=== PATIENT | male | born 1940 | race Caucasian/White ===

== ENCOUNTER → 2016-03-23 | Day surgery (SDC) | payer MEDICARE ==
[~2016-03-23] MED LIST: AMLO2.5T PO; ASPI81CH CHEW; ASPI81TA82 PO; BACT2OIN TOP; BUPIVACAINE/EPINEPHRINE 0.25% PF 10 ML VIAL ONE; COENPOW21; COQ130CA4 PO; CRES20TA PO; DICL75 PO; DIOV80TA4 PO; FISH120014 PO; HYDR-3533 PO; LACTATED RINGER'S 1000 ML INJ 1,000 ML ONE; LIDOCAINE 1%/EPINEPHrine 1:100,000 SOLN 20 ML VIAL ONE; META28.3 PO; METO25CR PO; METO25TA6 PO; MIDAZOLAM HCL 2 MG/2 ML VIAL ONE; MULT-135 PO; MULT-65 PO; NEXI40CA PO; NIAC500T18; NIAC500T5 PO; OMEG1000; PROPOFOL 200 MG/20 ML AMP IV ONE; RANI150 PO; ROSU20 PO; VITATAB25 PO; ZOFR8TAB PO; ceFAZolin INJ 1,000 MG VIAL ONE
--- NOTE | 2016-03-23 16:04 | TN ---
cc: SHAQUILLE MAK DATE OF SURGERY: 03/23/2016. PREOPERATIVE DIAGNOSIS: Right wrist first dorsal compartment tenosynovitis (de Quervain's tenosynovitis). POSTOPERATIVE DIAGNOSIS: Right wrist first dorsal compartment tenosynovitis (de Quervain's tenosynovitis). OPERATIVE PROCEDURE PERFORMED: First dorsal compartment release. SURGEON Shaquille Mak MD. ANESTHESIA: TIVA. ESTIMATED BLOOD LOSS: Minimal. INDICATIONS FOR THE PROCEDURE: This is a 75-year-old male with progressive first dorsal compartment symptoms. The patient has tenosynovitis and despite conservative care, continues to be painful. He presents for surgical treatment. DESCRIPTION OF THE PROCEDURE IN DETAIL: The patient was brought to the operating room, anesthetized in the supine position. The right arm was scrubbed alcohol followed by Hibiclens and draped sterilely. Antibiotics were given within a one hour time window and a time-out was done. After exsanguination, the tourniquet was inflated to 250 mmHg. Local anesthesia was utilized. A longitudinal incision was made in line with the first dorsal compartment. The compartment was opened longitudinally. Multiple slips of the tendon were identified. A portion of this was excised. The tendons had excellent gliding through this region. The wound was irrigated copiously. It was anesthetized and closed with interrupted 3-0 Vicryl followed by running 4-0 Vicryl and Steri-Strips and Benzoin. Sponge count and needle counts were all correct. The patient tolerated the procedure well and was taken to recovery in satisfactory condition.7 Shaquille Mak MD [facility] [place] /3:46 PM /3:58 PM
== END | disposition home or self-care (01) ==
LOC: ESDC 12:56
PROVIDERS: ATTEND Orthopaedic Surgery Orthopaedic Surgery of the Spine
DX: M65.4 Radial styloid tenosynovitis [de Quervain] (principal)
CPT/HCPCS: 01810; 25000; J0690; J2250; J3010; J7120

== ENCOUNTER 2016-05-13 23:47 | Emergency (ER) | payer MEDICARE ==
[~2016-05-13] VITALS: Ht 172.7 cm; Wt 81.0 kg
[~2016-05-13 23:47] MED LIST changes: -ASPI81CH CHEW; -BUPIVACAINE/EPINEPHRINE 0.25% PF 10 ML VIAL ONE; -COENPOW21; -LACTATED RINGER'S 1000 ML INJ 1,000 ML ONE; -LIDOCAINE 1%/EPINEPHrine 1:100,000 SOLN 20 ML VIAL ONE; -METO25TA6 PO; -MIDAZOLAM HCL 2 MG/2 ML VIAL ONE; -MULT-135 PO; -NIAC500T18; -OMEG1000; -PROPOFOL 200 MG/20 ML AMP IV ONE; -ROSU20 PO; -ZOFR8TAB PO; -ceFAZolin INJ 1,000 MG VIAL ONE
[2016-05-13 23:55] VITALS: BP 144/80; PULSE 99; RESP 20; TEMP 98.2; O2SAT 99
[2016-05-14] MEDS ORDERED: SODIUM CHLOR 0.9% 1000 ML INJ 1,000 ML IV SCH ×2 (00:29→00:30)
[2016-05-14] MEDS ORDERED: FAMOTIDINE 20 MG/2 ML VIAL IV PUSH ONE (00:30)
[2016-05-14] MEDS ORDERED: ONDANSETRON HCL 4 MG/2 ML VIAL IVP ONE (00:30)
[2016-05-14] MEDS ORDERED: SODIUM CHLORIDE 0.9% FLUSH 5 ML FLUSH IVF PRN (00:30)
[2016-05-14] MEDS ORDERED: PANTOPRAZOLE SODIUM 40 MG VIAL IVP ONE (00:30)
--- NOTE | 2016-05-14 00:32 | PD ---
HPI Chief Complaint: GI Complaint Time Seen by Provider: 00:29 Travel History International Travel<30 days: No Contact w/Intl Traveler<30days: No Traveled to known affect area: No History of Present Illness HPI The patient is a 75-year-old male with a history of coronary artery disease, GERD and chronic back problems who complains of nausea, vomiting and diarrhea beginning today. He denies any fever, recent anabiotic's, well water ingestion or exposure to anyone with similar symptoms. He denies any cough. He denies any blood in the stool or vomitus. His stools liquid and he feels dehydrated. PFSH Past Medical History Hx Anticoagulant Therapy: Yes Arthritis: Yes Cardiovascular Problems: Yes High Cholesterol: Yes Chemotherapy: No Cerebrovascular Accident: No Coronary Artery Disease: Yes Diabetes: No Endocrine: No GERD: Yes Genitourinary: Yes Hypertension: Yes Immune Disorder: No Kidney Stones: Yes Neurologic: No Psychiatric: No Reproductive: No Respiratory: No ?: Not Past Surgical History Abdominal Surgery: Yes (APPY) Cardiac Surgery: Yes (heart stents left circumflex per records) Hysterectomy: No Thoracic Surgery: No Other Surgery: Yes Social History Alcohol Use: Yes (COUPLE DRINKS EACH DAY) Tobacco Use: No (quit in 1989) Substance Use: No Allergies-Medications (Allergen,Severity, Reaction): Coded Allergies: No Known Allergies (Unverified , 01/24/15) Reported Meds & Prescriptions Reported Meds & Active Scripts Active Reported Diovan (Valsartan) 80 Mg Tab 80 Mg PO DAILY [place]-3 1000 mg ([place]-3 Fatty Acids) 1 Cap Cap Niacin (Niacinamide) 500 Mg Tab Multi Vitamin (Multiple Vitamin) 1 Tab Tab 1 Tab PO DAILY Metoprolol Succinate ER 24 HR (Metoprolol Succinate) 25 Mg Tab 12.5 Mg PO DAILY Nexium (Esomeprazole DR) 40 Mg Capdr 40 Mg PO DAILY Crestor (Rosuvastatin Calcium) 20 Mg Tab 20 Mg PO DAILY Coenzyme Q10 1 Pow Pow Vitamin D-[address] (Cholecalciferol) 1,000 Unit Tab 1,000 Units PO DAILY Aspirin 81 Mg Chew 81 Mg CHEW DAILY Review of Systems Except as stated in HPI: all other systems reviewed are Neg Physical Exam Narrative GENERAL: The patient is slightly dehydrated, alert, oriented 3 in slight apparent distress with his abdominal discomfort. His vital signs show blood pressure 144/80 but otherwise normal. SKIN: Warm and dry. HEAD: Atraumatic. Normocephalic. EYES: Pupils equal and round. No scleral icterus. No injection or drainage. ENT: No nasal bleeding or discharge. Mucous membranes pink and moist. NECK: Trachea midline. No JVD. CARDIOVASCULAR: Regular rate and rhythm. No murmur appreciated. RESPIRATORY: No accessory muscle use. Clear to auscultation. Breath sounds equal bilaterally. GASTROINTESTINAL: Abdomen soft, with minimal discomfort over the bilateral lower quadrants to direct palpation, nondistended. Hepatic and splenic margins not palpable. No guarding or rebound is present. MUSCULOSKELETAL: No obvious deformities. No clubbing. No cyanosis. No edema. NEUROLOGICAL: Awake and alert. No obvious cranial nerve deficits. Motor grossly within normal limits. Normal speech. PSYCHIATRIC: Appropriate mood and affect; insight and judgment normal. Data Data Last Documented VS Vital Signs Date Time Temp Pulse Resp B/P Pulse Ox O2 Delivery O2 Flow Rate FiO2 05/14/16 01:04 78 16 173/77 99 Room Air 05/13/16 23:55 98.2 Orders Complete Blood Count With Diff (05/14/16 00:29) Comprehensive Metabolic Panel (05/14/16 00:29) Lipase (05/14/16 00:29) Iv Access Insert/Monitor (05/14/16 00:29) Ecg Monitoring (05/14/16 00:29) Oximetry (05/14/16 00:29) Ondansetron Inj (Zofran Inj) (05/14/16 00:30) Pantoprazole Inj (Protonix Inj) (05/14/16 00:30) Sodium Chlor 0.9% 1000 Ml Inj (Ns 1000 M (05/14/16 00:29) Sodium Chloride 0.9% Flush (Ns Flush) (05/14/16 00:30) Famotidine Inj (Pepcid Inj) (05/14/16 00:30) Sodium Chlor 0.9% 1000 Ml Inj (Ns 1000 M (05/14/16 00:30) Labs Laboratory Tests Test 05/14/16 00:40 White Blood Count 8.6 TH/MM3 Red Blood Count 4.36 MIL/MM3 Hemoglobin 13.9 GM/DL Hematocrit 42.1 % Mean Corpuscular Volume 96.5 FL Mean Corpuscular Hemoglobin 31.9 PG Mean Corpuscular Hemoglobin 33.1 % Concent Red Cell Distribution Width 14.4 % Platelet Count 126 TH/MM3 Mean Platelet Volume 8.8 FL Neutrophils (%) (Auto) 81.2 % Lymphocytes (%) (Auto) 7.2 % Monocytes (%) (Auto) 6.7 % Eosinophils (%) (Auto) 1.0 % Basophils (%) (Auto) 3.9 % Neutrophils # (Auto) 7.0 TH/MM3 Lymphocytes # (Auto) 0.6 TH/MM3 Monocytes # (Auto) 0.6 TH/MM3 Eosinophils # (Auto) 0.1 TH/MM3 Basophils # (Auto) 0.3 TH/MM3 CBC Comment AUTO DIFF Differential Comment AUTO DIFF CONFIRMED Platelet Estimate LOW Platelet Morphology Comment NORMAL Red Cell Morphology Comment NORMAL Sodium Level 144 MEQ/L Potassium Level 3.8 MEQ/L Chloride Level 109 MEQ/L Carbon Dioxide Level 24.7 MEQ/L Anion Gap 10 MEQ/L Blood Urea Nitrogen 16 MG/DL Creatinine 1.00 MG/DL Estimat Glomerular Filtration 73 ML/MIN Rate Random Glucose 103 MG/DL Calcium Level 8.2 MG/DL Total Bilirubin 0.5 MG/DL Aspartate Amino Transf 14 U/L (AST/SGOT) Alanine Aminotransferase 24 U/L (ALT/SGPT) Alkaline Phosphatase 71 U/L Total Protein 7.2 GM/DL Albumin 3.6 GM/DL Lipase 150 U/L MDM Medical Decision Making Medical Screen Exam Complete: Yes Emergency Medical Condition: Yes Medical Record Reviewed: Yes Interpretation(s) The CBC shows a platelet count of 126,000 with 81% neutrophils. The CBC is otherwise unremarkable. The complete metabolic profile shows a GFR of 73, calcium 8.2 but is otherwise normal. The lipase is normal. Differential Diagnosis The patient has a viral gastroenteritis. Narrative Course It is now 0-20 and the patient is not nauseated and has successfully drank clear liquids. He wants to go home. He was offered a third liter of saline but would prefer to go home and sleep. Impression: Viral gastroenteritis Plan: The patient is given Zofran 8 mg to take 3 times a day regularly for the first several days. Thereafter he can use the Zofran as an as needed drugs. He needs to drink clear liquids for the first day or 2. He is to follow-up with his primary care physician later on this week. Diagnosis Primary Impression: Viral gastroenteritis Additional Instructions: As we discussed, drink only clear liquids in the next day or 2. Avoid fat. Jello is an excellent alternative to clear liquids. Avoid very products. After handling clear liquids like Pedialyte you can move on to fruit juices and soups. Follow-up later on this week with your primary care physician. Med/Other Pt SpecificInfo: Prescription(s) given Scripts Ondansetron (Zofran)8 Mg Tab8 Mg PO TID #21 TAB Ref 0 Prov:Manuel Aguilar MD 05/14/16 Disposition: 01 DISCHARGE HOME Condition: Stable Manuel Aguilar MD May 14, 2016 00:32
[2016-05-14] MEDS ORDERED: OMEG1000 (00:35)
[2016-05-14] MEDS ORDERED: ASPI81CH CHEW (00:35)
[2016-05-14] MEDS ORDERED: DIOV80TA4 PO (00:35)
[2016-05-14] MEDS ORDERED: NEXI40CA PO (00:35)
[2016-05-14] MEDS ORDERED: ROSU20 PO (00:35)
[2016-05-14] MEDS ORDERED: MULT-135 PO (00:35)
[2016-05-14] MEDS ORDERED: VITATAB25 PO (00:35)
[2016-05-14] MEDS ORDERED: METO25TA6 PO (00:35)
[2016-05-14] MEDS ORDERED: COENPOW21 (00:35)
[2016-05-14] MEDS ORDERED: NIAC500T18 (00:35)
[2016-05-14 00:51] LABS: BASOPHIL # 0.3 TH/MM3 (0-0.2); BASOPHIL % 3.9 % (0.0-2.0); EOSINOPHIL # 0.1 TH/MM3 (0-0.4); HEMATOCRIT 42.1 % (39.0-51.0); LYMPH % 7.2 % (9.0-44.0); LYMPHOCYTE # 0.6 TH/MM3 (1.0-4.8); MEAN CELL VOLUME 96.5 FL (80.0-100.0); MEAN CORPUSCULAR HEMOGLOBIN 31.9 PG (27.0-34.0); MEAN CORPUSCULAR HGB CONC 33.1 % (32.0-36.0); MONO % 6.7 % (0.0-8.0); NEUT % 81.2 % (16.0-70.0); PLATELET COUNT 126 TH/MM3 (150-450); RED BLOOD COUNT 4.36 MIL/MM3 (4.50-5.90); RED CELL DISTRIBUTION WIDTH 14.4 % (11.6-17.2); WHITE BLOOD COUNT 8.6 TH/MM3 (4.0-11.0)
[2016-05-14 01:00] LABS: CHLORIDE 109 MEQ/L (98-107); POTASSIUM 3.8 MEQ/L (3.5-5.1); SODIUM (NA) 144 MEQ/L (136-145)
[2016-05-14 01:04] VITALS: BP 173/77; PULSE 78; RESP 16; O2SAT 99
[2016-05-14 01:04] LABS: ANION GAP 10 MEQ/L (5-15); BICARBONATE 24.7 MEQ/L (21.0-32.0); BLOOD UREA NITROGEN 16 MG/DL (7-18)
[2016-05-14 01:07] LABS: ALT (GPT) 24 U/L (12-78); AST (GOT) 14 U/L (15-37); GLOMERULAR FILTRATION RATE 73 ML/MIN (>89)
[2016-05-14 01:08] LABS: TOTAL BILIRUBIN ADULT 0.5 MG/DL (0.2-1.0)
[2016-05-14 01:10] LABS: ALKALINE PHOSPHATASE 71 U/L (45-117)
[2016-05-14 01:11] LABS: HEMO FLAGS AUTO DIFF
[2016-05-14 01:27] LABS: PLATELET ESTIMATE SMEAR LOW (NORMAL); PLATELET MORPHOLOGY NORMAL (NORMAL); SCAN/DIFF AUTO DIFF CONFIRMED
[2016-05-14] MEDS ORDERED: ZOFR8TAB PO (02:22)
[2016-05-14] MEDS ORDERED: ONDANSETRON HCL 4 MG/2 ML VIAL IV ONE (02:45)
[2016-05-14 02:59] VITALS: BP 140/77
== END 2016-05-14 03:02 | disposition home or self-care (01) ==
LOC: PHED 23:47
DX: A08.4 Viral intestinal infection, unspecified (principal); R19.7 Diarrhea, unspecified; E78.00 Pure hypercholesterolemia, unspecified; I10 Essential (primary) hypertension; Z79.01 Long term (current) use of anticoagulants; I25.10 Atherosclerotic heart disease of native coronary artery without angina pectoris
CPT/HCPCS: 80053; 83690; 85025; 96361; 96374; 96375; 96376; 99284; C9113; J2405; J7030

== ENCOUNTER 2017-03-16 16:46 | Emergency (ER) | payer MEDICARE ==
[~2017-03-16] VITALS: Ht 172.7 cm; Wt 80.2 kg
[~2017-03-16 16:46] MED LIST changes: -AMLO2.5T PO; +ASPI-516 CHEW; -ASPI81TA82 PO; -BACT2OIN TOP; +COENPOW21; -COQ130CA4 PO; -CRES20TA PO; -DICL75 PO; -FISH120014 PO; -HYDR-3533 PO; -META28.3 PO; +METO1TAB42 PO; -METO25CR PO; +MULT-135 PO; -MULT-65 PO; +NIAC500T18; -NIAC500T5 PO; +OMEG1000; -RANI150 PO; +ROSU20 PO; +ZOFR8TAB PO
[2017-03-16 16:56] VITALS: BP 136/74; PULSE 74; RESP 18; TEMP 97.7; O2SAT 97
[2017-03-16] MEDS ORDERED: SODIUM CHLORIDE 0.9% FLUSH 10 ML FLUSH IVF PRN (17:15)
[2017-03-16] MEDS ORDERED: MORPHINE SULFATE 4 MG/ML INJ IV PUSH ONE (17:15)
[2017-03-16] MEDS ORDERED: ASPIRIN 81 MG CHEW TAB PO ONE (17:15)
[2017-03-16 17:30] VITALS: BP_SYST 107; BP_SYST 108; BP_DIAS 59; BP_DIAS 62; PULSE 81; RESP 16; O2SAT 98
[2017-03-16] MEDS ORDERED: MORPHINE SULFATE 2 MG/ML INJ IV PUSH ONE (17:30)
[2017-03-16 17:33] LABS: AUTOMATED NEUTROPHIL # 4.2 TH/MM3 (1.8-7.7); BASOPHIL % 0.7 % (0.0-2.0); EOSINOPHIL # 0.2 TH/MM3 (0-0.4); EOSINOPHIL % 3.4 % (0.0-4.0); HEMATOCRIT 39.5 % (39.0-51.0); HEMOGLOBIN 13.1 GM/DL (13.0-17.0); LYMPH % 25.3 % (9.0-44.0); LYMPHOCYTE # 1.6 TH/MM3 (1.0-4.8); MEAN CELL VOLUME 97.3 FL (80.0-100.0); MEAN CORPUSCULAR HEMOGLOBIN 32.4 PG (27.0-34.0); MEAN CORPUSCULAR HGB CONC 33.3 % (32.0-36.0); MONO % 6.3 % (0.0-8.0); MONOCYTE # 0.4 TH/MM3 (0-0.9); NEUT % 64.3 % (16.0-70.0); PLATELET COUNT 147 TH/MM3 (150-450); RED BLOOD COUNT 4.06 MIL/MM3 (4.50-5.90); RED CELL DISTRIBUTION WIDTH 13.6 % (11.6-17.2); WHITE BLOOD COUNT 6.4 TH/MM3 (4.0-11.0)
[2017-03-16] MEDS ORDERED: MULT1TAB46 PO (17:37)
[2017-03-16 17:41] LABS: CHLORIDE 104 MEQ/L (98-107); SODIUM (NA) 139 MEQ/L (136-145)
[2017-03-16 17:44] LABS: CALCIUM 8.7 MG/DL (8.5-10.1)
[2017-03-16 17:45] LABS: ALBUMIN 3.3 GM/DL (3.4-5.0); BICARBONATE 29.1 MEQ/L (21.0-32.0); BLOOD UREA NITROGEN 17 MG/DL (7-18); GLUCOSE,RANDOM 123 MG/DL (74-106); LIPASE 171 U/L (73-393)
[2017-03-16 17:47] LABS: ALT (GPT) 23 U/L (12-78); AST (GOT) 23 U/L (15-37)
[2017-03-16 17:48] LABS: GLOMERULAR FILTRATION RATE 65 ML/MIN (>89)
[2017-03-16 17:49] LABS: TOTAL BILIRUBIN ADULT 0.5 MG/DL (0.2-1.0); TOTAL PROTEIN 7.2 GM/DL (6.4-8.2)
[2017-03-16 17:50] LABS: ALKALINE PHOSPHATASE 76 U/L (45-117)
--- NOTE | 2017-03-16 17:50 | RADRPT ---
EXAM DATE/TIME: 03/16/2017 17:21 [facility] COMPARISON: CHEST SINGLE AP, October 04, 2014, 7:28. INDICATIONS : Chest pain MEDICAL HISTORY : Hypercholesterolemia. Hypertension Coronary artery disease. SURGICAL HISTORY : Stents. ENCOUNTER: Initial ACUITY: 1 week PAIN SCORE: 8/10 LOCATION: Bilateral chest FINDINGS: A single view of the chest demonstrates the lungs to be symmetrically aerated without evidence of mas s, infiltrate or effusion. The cardiomediastinal contours are unremarkable. Osseous structures are intact. CONCLUSION: 1. No acute cardiopulmonary disease. Kerwin Dimas MD on March 16, 2017 at 17:48 Board Certified Radiologist. This report was verified electronically.
[2017-03-16 17:53] LABS: TROPONIN I LESS THAN 0.02 NG/ML (0.02-0.05)
[2017-03-16 18:15] VITALS: BP 121/61; PULSE 62; RESP 17; O2SAT 97
[2017-03-16 18:56] VITALS: BP 138/74; PULSE 66; RESP 16; O2SAT 96
[2017-03-16 20:04] VITALS: BP 147/79; PULSE 60; RESP 18; O2SAT 96
--- NOTE | 2017-03-16 20:46 | PD ---
HPI Chief Complaint: Chest Pain Time Seen by Provider: 16:55 Travel History International Travel<30 days: No Contact w/Intl Traveler<30days: No Traveled to known affect area: No History of Present Illness HPI This is a 76-year-old male who has a history of 2 coronary stents who presents to the emergency department with chest pain in the left side of his chest, constant throughout today since he woke up this morning, nonradiating, with no associated shortness of breath or nausea. He's had pain like this in the past and it's been attributed to reflux but he feels like this is worse and more constant than normal. He took a nitroglycerin and it didn't go away. Patient followed with Dr. Barnett who with his city designer but recently retired. He is following up with a new city designer and has an appointment scheduled on Saturday. The patient has had a stress test within the past year which was reportedly normal. PFSH Past Medical History Hx Anticoagulant Therapy: Yes Arthritis: Yes Cardiovascular Problems: Yes High Cholesterol: Yes Chemotherapy: No Cerebrovascular Accident: No Coronary Artery Disease: Yes Diabetes: No Endocrine: No GERD: Yes Genitourinary: Yes Hypertension: Yes Immune Disorder: No Kidney Stones: Yes Neurologic: No Psychiatric: No Reproductive: No Respiratory: No Influenza Vaccination: Yes Past Surgical History Abdominal Surgery: Yes (APPY) Appendectomy: Yes Cardiac Surgery: Yes (heart stents left circumflex per records) Hysterectomy: No Thoracic Surgery: No Other Surgery: Yes Social History Alcohol Use: Yes (COUPLE DRINKS EACH DAY) Tobacco Use: No (quit in 1989) Substance Use: No Allergies-Medications (Allergen,Severity, Reaction): Coded Allergies: No Known Allergies (Unverified Allergy, Unknown, 03/16/17) Reported Meds & Prescriptions Reported Meds & Active Scripts Active Reported Multi Vitamin Daily (Multiple Vitamin) 1 Tab Tab 1 Tab PO DAILY Diovan (Valsartan) 80 Mg Tab 80 Mg PO DAILY [place]-3 1000 mg ([place]-3 Fatty Acids) 1 Cap Cap Metoprolol Succinate ER 24 HR (Metoprolol Succinate) 25 Mg Tab 12.5 Mg PO DAILY Nexium (Esomeprazole DR) 40 Mg Capdr 40 Mg PO DAILY Crestor (Rosuvastatin Calcium) 20 Mg Tab 20 Mg PO DAILY Coenzyme Q10 1 Pow Pow Vitamin D-[address] (Cholecalciferol) 1,000 Unit Tab 1,000 Units PO DAILY Aspirin 81 Mg Chew 81 Mg CHEW DAILY Review of Systems Except as stated in HPI: all other systems reviewed are Neg Physical Exam Narrative GENERAL:Well appearing, no acute distress SKIN: Focused skin assessment warm and dry. HEAD: Atraumatic. Normocephalic. EYES: Pupils equal and round. No injection or drainage. ENT: Moist mucous membranes NECK: Trachea midline. CARDIOVASCULAR: Regular rate and rhythm. No murmur appreciated. RESPIRATORY: Clear to auscultation. Breath sounds equal bilaterally. GASTROINTESTINAL: Abdomen soft, non-tender, nondistended. MUSCULOSKELETAL: No obvious deformities. NEUROLOGICAL: Awake and alert. No obvious cranial nerve deficits. Moving all extremities. PSYCHIATRIC: Appropriate mood and affect; insight and judgment normal. Data Data Last Documented VS Vital Signs Date Time Temp Pulse Resp B/P (MAP) Pulse Ox O2 Delivery O2 Flow Rate FiO2 03/16/17 21:27 56 16 148/85 (106) 97 03/16/17 20:04 Room Air 03/16/17 16:56 97.7 Orders Orders Electrocardiogram (03/16/17 17:10) Complete Blood Count With Diff (03/16/17 17:10) Comprehensive Metabolic Panel (03/16/17 17:10) Troponin I (03/16/17 17:10) Chest, Single Ap (03/16/17 17:10) Ecg Monitoring (03/16/17 17:10) Bilateral Bp Monitoring (03/16/17 17:10) Iv Access Insert/Monitor (03/16/17 17:10) Oximetry (03/16/17 17:10) Oxygen Administration (03/16/17 17:10) Aspirin Chew (Aspirin Chew) (03/16/17 17:15) Sodium Chloride 0.9% Flush (Ns Flush) (03/16/17 17:15) Morphine Inj (Morphine Inj) (03/16/17 17:30) Lipase (03/16/17 17:10) Troponin I (03/16/17 20:05) Ed Discharge Order (03/16/17 20:46) Labs Laboratory Tests Test 03/16/17 17:20 03/16/17 20:14 White Blood Count 6.4 TH/MM3 Red Blood Count 4.06 MIL/MM3 Hemoglobin 13.1 GM/DL Hematocrit 39.5 % Mean Corpuscular Volume 97.3 FL Mean Corpuscular Hemoglobin 32.4 PG Mean Corpuscular Hemoglobin Concent 33.3 % Red Cell Distribution Width 13.6 % Platelet Count 147 TH/MM3 Mean Platelet Volume 9.0 FL Neutrophils (%) (Auto) 64.3 % Lymphocytes (%) (Auto) 25.3 % Monocytes (%) (Auto) 6.3 % Eosinophils (%) (Auto) 3.4 % Basophils (%) (Auto) 0.7 % Neutrophils # (Auto) 4.2 TH/MM3 Lymphocytes # (Auto) 1.6 TH/MM3 Monocytes # (Auto) 0.4 TH/MM3 Eosinophils # (Auto) 0.2 TH/MM3 Basophils # (Auto) 0.0 TH/MM3 CBC Comment DIFF FINAL Differential Comment Blood Urea Nitrogen 17 MG/DL Creatinine 1.10 MG/DL Random Glucose 123 MG/DL Total Protein 7.2 GM/DL Albumin 3.3 GM/DL Calcium Level 8.7 MG/DL Alkaline Phosphatase 76 U/L Aspartate Amino Transf (AST/SGOT) 23 U/L Alanine Aminotransferase (ALT/SGPT) 23 U/L Total Bilirubin 0.5 MG/DL Sodium Level 139 MEQ/L Potassium Level 3.4 MEQ/L Chloride Level 104 MEQ/L Carbon Dioxide Level 29.1 MEQ/L Anion Gap 6 MEQ/L Estimat Glomerular Filtration Rate 65 ML/MIN Troponin I LESS THAN 0.02 NG/ML LESS THAN 0.02 NG/ML Lipase 171 U/L MDM Medical Decision Making Medical Screen Exam Complete: Yes Emergency Medical Condition: Yes Interpretation(s) EKG: Normal sinus rhythm, right bundle branch block, EKG appears similar to 2015 No leukocytosis Mild hypokalemia Troponin is negative 2 Lipase is normal Differential Diagnosis Acute coronary syndrome, GERD, gastritis, pancreatitis Narrative Course This is a 76-year-old male who has a history of coronary artery disease and coronary artery stent x2 who presents to the emergency department with chest discomfort. The patient reports that his chest pain is been intermittent over the past week and has been constant throughout today. There is no exertional component and he is not short of breath or nauseous. Patient had a normal stress test earlier this year. He was placed on a monitor and an IV was established. EKG is unchanged from prior. Labs are normal with a troponin that is negative 2-3 hours apart. I spoke to the patient and offered him observation for serial cardiac enzymes and risk stratification morning. Being that he has an appointment with outpatient cardiology on Saturday he prefers to wait until then which I think is reasonable. I asked him if he develops new symptoms that all he should return to the emergency department immediately. Patient will be discharged. Diagnosis Primary Impression: Chest pain Qualified Codes: R07.9 - Chest pain, unspecified Patient Instructions: General Instructions Additional Instructions: If you develop severe chest pain, shortness of breath, sweating, lightheadedness , dizziness or difficulty breathing return to the emergency department immediately. Followup with your city designer as scheduled on Saturday. Med/Other Pt SpecificInfo: No Change to Meds Disposition: 01 DISCHARGE HOME Condition: Stable Debora Blanco MD Mar 16, 2017 20:46
[2017-03-16 21:27] VITALS: BP 148/85
--- NOTE | 2017-03-17 12:56 | EKG ---
Date Performed: 03/16/2017 Time Performed: 16:55:55 PTAGE: 76 years EKG: RIGHT BUNDLE BRANCH BLOCK LEFT AXIS DEVIATION Since previous tracing, no significant change noted ABNORMAL ECG PREVIOUS TRACING : 10/04/2014 12.56 DOCTOR: Damian Sheppard Interpretating Date/Time 03/17/2017 12:55:49
== END 2017-03-16 21:30 | disposition home or self-care (01) ==
LOC: PHED 16:46
DX: R07.9 Chest pain, unspecified (principal); I25.10 Atherosclerotic heart disease of native coronary artery without angina pectoris; E78.00 Pure hypercholesterolemia, unspecified; I10 Essential (primary) hypertension; K21.9 Gastro-esophageal reflux disease without esophagitis; E87.6 Hypokalemia; R94.31 Abnormal electrocardiogram [ECG] [EKG]; Z95.5 Presence of coronary angioplasty implant and graft; Z87.891 Personal history of nicotine dependence
CPT/HCPCS: 71045; 80053; 83690; 84484; 85025; 93005; 96374; 99285; J2270

== ENCOUNTER 2018-03-13 09:48 | Inpatient (IN) ==
[2018-03-13] MEDS ORDERED: Post-op Orders (for Pharmacy) OTHER ONE (15:12)
[2018-03-13] MEDS ORDERED: Naloxone Inj 0.4 MG/ML Vial IV.PUSH PRN (15:12)
[2018-03-13] MEDS ORDERED: Bisacodyl 10 MG Supp RECTAL PRN (15:12)
[2018-03-13] MEDS: Enoxaparin Inj 40 MG/0.4 ML Syringe SQ SCH (16:00)
--- NOTE | 2018-03-13 16:07 | MH ---
cc: Luma Banks MD DATE OF ADMISSION: 03/13/2018 ADMITTING PHYSICIAN: Luma Banks MD, Surgeon ADMITTING DIAGNOSIS: 1. Peripheral vascular disease, nonhealing ulcer of the left lateral foot. 2. Hypertension. 3. Coronary artery disease. 4. Hypercholesteremia. HISTORY OF PRESENT ILLNESS: This 77-year-old gentleman underwent in February last year removal of a callus of the left fifth toe by podiatry and this never really healed. It sort of smoldered along for a while. An eschar formed. The nail came off. The patient is now being admitted for further workup and evaluation of all of his vascular disease and possible reasons of nonhealing. PAST MEDICAL HISTORY: Hypertension, hyperlipidemia, coronary artery disease, myocardial infarction. PAST SURGICAL HISTORY: Coronary artery angioplasty and stenting in 2011 and now this surgery. MEDICATIONS: Given from the record. SOCIAL HISTORY: The patient does not smoke. PHYSICAL EXAMINATION: GENERAL: Reveals a pleasant 77-year-old gentleman. HEENT: Normocephalic. No trauma to the head. Pupils equal, reactive. Extraocular muscles intact. NECK: Supple. Good carotid pulses. Faint right-sided bruit. CHEST: Clear bilateral breath sounds. HEART: Regular rhythm. No masses on the chest wall. No abnormalities noted. No cardiac bruits. Hemodynamically, the patient is stable with normal blood pressure. He is on several antihypertensives. ABDOMEN: Soft. Active bowel sounds. No rebound, no guarding, no masses. EXTREMITIES: The patient has bilateral palpable femoral pulses, bilateral dopplerable popliteal strong pulses and palpable right-sided dorsalis pedis and posterior tibial pulses and dopplerable posterior tibial. On the left side the patient has dopplerable posterior tibial and I do not see dorsalis pedis at all. The patient has a small wet ulcer on the lateral aspect of his fifth toe, which is not healing, question about osteomyelitis as well. NEUROLOGIC: The patient is fully intact. Inna coma scale is 15. His motoric and sensory is fully preserved. IMPRESSION: The patient with questionable vascular disease in the left leg. The fact that I feel the pulse in the right leg is quite an indication is that the patient probably does not have significant disease on the right side. Most likely on CTA, patient will have a good inflow, and likely diffuse vascular disease below the level of the groin but I do not suspect to see any major occlusions.likely patient will have small vessel disease in the lower third of the calf and feet which is probably the flow-limiting pathology rather than anything above it. Nonetheless, he will be evaluated with a CTA with runoff to see the left side and see if there is any contribution of vascular supply to the nonhealing distally. Patient will undergo full vascular workup. Thank you very much for referral. The patient will be admitted to my service and Dr. Bart Mcclelland is consulted. We have discussed the case. Luma Banks MD SJ/ct , 03:31 PM , 03:38 PM MTDD
--- NOTE | 2018-03-13 17:25 | P.CONIM ---
History of Present Illness Service: [facility] Consult date: 03/13/18 Requesting Physician: Luma Banks Reason for Consult: management of hypertension, left lateral foot wound Primary Care Provider: Peyman Mcclelland DPM Chief Complaint: nonhealing left lateral foot wound History of Present Illness: Patient is a very pleasant 77-year-old male with a past medical history significant for hypertension, coronary artery disease, dyslipidemia, MA and probable peripheral vascular disease. Patient presented to the hospital for vascular surgery evaluation due to a nonhealing ulcer of the left lateral foot. Patient states he underwent a procedure on 02/09 to the left lateral aspect of his foot. Patient had sutures in for approximately 3 weeks. He states when he went to have them removed his physician noted drainage and probable infection. He was started on Bactrim, however, this was discontinued secondary to stomach upset. Patient was then started on Cipro 500 mg twice daily and clindamycin 300 mg 3 times daily. Patient states he has taken these for approximately 1 week and has about 1 week remaining. Patient does have a history of coronary artery disease status post cardiac stent placements in 2011. He follows up with his quality control head regularly. His last heart catheterization was approximately 6 months ago and unremarkable. Patient states he now only follows up every year with his quality control head. Patient reports overall good control of his blood pressure and cholesterol. The hospitalist team has been consulted for assistance and evaluation of patient's chronic medical problems. Review of Systems Constitutional: Denies body ache(s) and Denies weakness Eyes: Reports system reviewed and no additional complaints, except as docu Ears, Nose, Mouth, and Throat: Reports system reviewed and no additional complaints, except as docu Cardiovascular: Denies chest pain, Denies edema and Denies irregular heart rhythm Respiratory: Denies cough and Denies dyspnea Gastrointestinal: Denies change in bowel habits and Denies loose stools Genitourinary: Denies hematuria, Denies dysuria and Denies urinary frequency Musculoskeletal: Reports system reviewed and no additional complaints, except as docu Skin/Breast: Reports system reviewed and no additional complaints, except as docu Neurologic: Reports system reviewed and no additional complaints, except as docu Psychiatric: Reports system reviewed and no additional complaints, except as docu Endocrine: Reports system reviewed and no additional complaints, except as docu Hematologic/Lymphatic: Reports system reviewed and no additional complaints, except as docu Allergic/Immunologic: Reports system reviewed and no additional complaints, except as docu PMFSH History History Provided By: Patient Medical History Medical History Appendicitis (Acute) High cholesterol (Acute) Hypertension (Acute) Rotator cuff arthropathy of both shoulders (Acute) Surgical History Surgical History H/O foot surgery (Acute) History of laminectomy (Acute) Hx of heart artery stent (Acute) Family History Family History Father Alcohol use Heart disease Mother Alzheimer disease Diabetes Social History Social History Substance History: No History of Abuse Second Hand Smoke Exposure: No Smoking Status: Former smoker Tobacco Type: Cigarettes How Often Do You Have a Drink Containing Alcohol: 4 or more times a week Immunization History Tetanus Immunization: <5 Years Hx Influenza Vaccine This Season: Yes Medications and Allergies Allergies Allergy/AdvReac Type Severity Reaction Status Date / Time No Known Allergies Allergy Unknown Uncoded 03/16/17 17:17 Home Medications Medication Instructions Recorded Confirmed Type aspirin 81 mg PO HS 03/13/18 03/13/18 History cholecalciferol (vitamin D3) 1,000 unit PO HS 03/13/18 03/13/18 History [Vitamin D3] cyanocobalamin-cobamamide [B12] 500 mcg SUBLINGUAL DAILY 03/13/18 03/13/18 History esomeprazole magnesium [Nexium] 20 mg PO BID 03/13/18 03/13/18 History metoprolol succinate 25 mg PO HS 03/13/18 03/13/18 History multivitamin,tx-minerals 03/13/18 03/13/18 History [Multi-Vitamin HP/Minerals] potassium 595 mg PO EVERY OTHER DAY 03/13/18 03/13/18 History rosuvastatin [Crestor] See Label Instructions .ROUTE 03/13/18 03/13/18 History .COMPLEX rosuvastatin [Crestor] See Label Instructions .ROUTE 03/13/18 03/13/18 History .COMPLEX valsartan [Diovan] 80 mg PO DAILY 03/13/18 03/13/18 History Active Medications: Active Medications Al Hydroxide/Mg Hydroxide (Milk Of Magnesia Liq) 30 ml PO Q12H PRN PRN Reason: Mild Constipation Aspirin (Aspirin Chew) 81 mg PO HS [facility] Bisacodyl (Dulcolax Supp) 10 mg RECTAL DAILY PRN PRN Reason: SEVERE CONSITIPATION Enoxaparin Sodium (Lovenox Inj) 40 mg SQ Q24H [facility] Sodium Chloride (Ns Inj) 1,000 mls @ 100 mls/hr IV.CONT .Q10H [facility] Lactulose (Lactulose Liq) 30 ml PO DAILY PRN PRN Reason: SEVERE CONSITIPATION Metoprolol Succinate (Toprol Xl) 25 mg PO HS [facility] Naloxone HCl (Narcan Inj) 0.4 mg IV.PUSH UNSCH PRN PRN Reason: SEE LABEL COMMENTS Ondansetron HCl (Zofran Inj) 4 mg IV.PUSH Q6H PRN PRN Reason: NAUSEA OR VOMITING Oxycodone HCl (Roxicodone) 5 mg PO Q4H PRN PRN Reason: PAIN SCALE 3 TO 5 Pantoprazole Sodium (Protonix) 40 mg PO DAILY [facility] Senna/Docusate Sodium (Rin-Colace) 1 tab PO BID [facility] Sennosides (Senokot) 17.2 mg PO Q12H PRN PRN Reason: Moderate Constipation Vitamin D (Vitamin D3) 1,000 unit PO HS [facility] Physical Exam Vital signs: Last Vital Signs Temp 98.1 F 03/13/18 12:00 Pulse 57 L 03/13/18 12:00 Resp 18 03/13/18 12:00 BP 141/64 H 03/13/18 12:00 Pulse Ox 98 03/13/18 12:00 Intake & Output 03/11/18 03/12/18 03/13/18 03/14/18 06:59 06:59 06:59 06:59 Weight 79.379 kg Constitutional no acute distress and cooperative Routine HEENT Exam Head: Present normocephalic and atraumatic Eye: Present EOMI, PERRL and normal accommodation ENT: Present mucous membranes moist Routine Neck Exam Present supple; Absent JVD and tracheal deviation Routine Chest/Breast/Axilla Exam Chest wall: Absent tenderness Routine Respiratory Exam Present CTA bilaterally; Absent accessory muscle use, decreased breath sounds and respiratory distress Routine Cardiovascular Exam Present RRR, S1 and S2; Absent murmur Routine Abdominal Exam Present soft; Absent tenderness and distended Routine Extremities Exam Present full ROM; Absent cyanosis and edema Routine Skin Exam Present intact Routine Neurological Exam Present alert, oriented X3, CN II-XII intact, normal reflexes and moving all extremities Routine Psychiatric Exam Present normal affect, normal thought process, good insight and good judgment Assessment and Plan Plan Patient is a pleasant 77 year old male with a past medical history significant for coronary artery disease s/p cardiac stent placement, hypertension, dyslipidemia and GERD. He presents for evaluation by vascular surgery for a nonhealing wound to the lateral aspect of his left foot. Patient underwent surgical procedure 02/10/18 and developed a wound afterwards. Left lateral foot nonhealing wound -primary management per Vascular surgery -CTA with runoff pending -we will resume patients Cipro and Clindamycin as previously ordered outpatient Hypertension, chronic -stable -continue home meds metoprolol and Valsartan -monitor vital signs per unit protocol Dyslipidemia, chronic - stable -pt with recent lipid panel at [place] -total Chol 190's, LDL 99 -statin currently on hold Hx of coronary artery disease s/p cardiac stent placement 2011 -last heart cath 6 months ago and unremarkable per patient report -f/u with Transmission Inspector yearly -continue ASA GERD, chronic - stable -on home Nexium MDM: self Code: Full GI ppx: not indicated DVT ppx: Lovenox SubQ Dispo: home once cleared by vascular specialist Discussed Condition With: patient and
[2018-03-13] MEDS: Sod Chloride 0.9% Inj 1,000 ML IV.CONT SCH (19:10)
--- NOTE | 2018-03-13 20:03 | P.CONPOD ---
History of Present Illness Service: podiatry Consult date: 03/13/18 Reason for Consult: left foot wound Primary Care Provider: Peyman Mcclelland DPM Chief Complaint: nonhealing left lateral foot wound History of Present Illness: Patient known to me with ulceration left lateral foot. He underwent minimally invasive surgery for ostectomy of the painful area left foot in January and had slow healing progress and complained of friction to the area in his surgical boot. He said it was loose and was converted to a surgical shoe and still stated he was feeling friction. At most recent visit, he was noted to have a larger ulceration to the area where incision was located and was treated with antibiotics and sent in for medical and vascular optimization and for possible debridement. Review of Systems All other systems reviewed negative except as stated in [facility] - History History Provided By: Patient - Medical History Medical History: Medical History (Last Reviewed 03/13/18 @ 17:38 by Shane Noland APRN) Appendicitis High cholesterol Hypertension Rotator cuff arthropathy of both shoulders - Surgical History Surgical History: Surgical History (Last Reviewed 03/13/18 @ 17:38 by Shane Noland APRN) H/O foot surgery History of laminectomy Hx of heart artery stent - Family History Family History: Family History (Last Reviewed 03/13/18 @ 17:39 by Shane Noland APRN) Father Alcohol use Heart disease Mother Alzheimer disease Diabetes - Tobacco History Second Hand Smoke Exposure: No Tobacco Use In Past 30 Days: No Smoking Status: Former smoker Tobacco Type: Cigarettes - Alcohol History How Often Do You Have a Drink Containing Alcohol: 4 or more times a week - Substance Use History Substance History: No History of Abuse - Immunization History Tetanus Immunization: <5 Years Hx Influenza Vaccine This Season: Yes Medications and Allergies Active Medications: Active Medications Al Hydroxide/Mg Hydroxide (Milk Of Lillian Liq) 30 ml PO Q12H PRN PRN Reason: Mild Constipation Aspirin (Aspirin Chew) 81 mg PO HS [facility] Bisacodyl (Dulcolax Supp) 10 mg RECTAL DAILY PRN PRN Reason: SEVERE CONSITIPATION Ciprofloxacin HCl (Cipro) 500 mg PO Q12HR [facility] Clindamycin HCl (Cleocin) 300 mg PO Q8HR [facility] Enoxaparin Sodium (Lovenox Inj) 40 mg SQ Q24H [facility] Last Admin: 03/13/18 16:00 Dose: 40 mg Sodium Chloride (Ns Inj) 1,000 mls @ 100 mls/hr IV.CONT .Q10H [facility] Last Admin: 03/13/18 19:10 Dose: 100 mls/hr Lactulose (Lactulose Liq) 30 ml PO DAILY PRN PRN Reason: SEVERE CONSITIPATION Metoprolol Succinate (Toprol Xl) 25 mg PO [facility] Naloxone HCl (Narcan Inj) 0.4 mg IV.PUSH UNSCH PRN PRN Reason: SEE LABEL COMMENTS Ondansetron HCl (Zofran Inj) 4 mg IV.PUSH Q6H PRN PRN Reason: NAUSEA OR VOMITING Oxycodone HCl (Roxicodone) 5 mg PO Q4H PRN PRN Reason: PAIN SCALE 3 TO 5 Pantoprazole Sodium (Protonix) 40 mg PO DAILY [facility] Senna/Docusate Sodium (Rin-Colace) 1 tab PO BID [facility] Sennosides (Senokot) 17.2 mg PO Q12H PRN PRN Reason: Moderate Constipation Vitamin D (Vitamin D3) 1,000 unit PO [facility] Allergies Allergy/AdvReac Type Severity Reaction Status Date / Time No Known Allergies Allergy Unknown Uncoded 03/16/17 17:17 Home Medications Medication Instructions Recorded Confirmed Type aspirin 81 mg PO HS 03/13/18 03/13/18 History cholecalciferol (vitamin D3) 1,000 unit PO HS 03/13/18 03/13/18 History [Vitamin D3] cyanocobalamin-cobamamide [B12] 500 mcg SUBLINGUAL DAILY 03/13/18 03/13/18 History esomeprazole magnesium [Nexium] 20 mg PO BID 03/13/18 03/13/18 History metoprolol succinate 25 mg PO HS 03/13/18 03/13/18 History multivitamin,tx-minerals 03/13/18 03/13/18 History [Multi-Vitamin HP/Minerals] potassium 595 mg PO EVERY OTHER DAY 03/13/18 03/13/18 History rosuvastatin [Crestor] See Label Instructions .ROUTE 03/13/18 03/13/18 History .COMPLEX rosuvastatin [Crestor] See Label Instructions .ROUTE 03/13/18 03/13/18 History .COMPLEX valsartan [Diovan] 80 mg PO DAILY 03/13/18 03/13/18 History Physical Exam Vital signs: Vital Signs 03/13/18 11:00 03/13/18 12:00 03/13/18 16:00 Temperature 97.4 F L 98.1 F 98.1 F Pulse Rate 63 57 L 65 Respiratory Rate 18 18 18 Blood Pressure 153/71 H 141/64 H 126/64 Pulse Oximetry 99 98 96 Intake & Output 03/13/18 03/13/18 03/14/18 06:59 18:59 06:59 Intake Total 240 / 240 Output Total 500 / 500 Balance -260 / -260 Weight 79.379 kg Intake: Oral 240 / 240 Output: Urine 500 / 500 Other: Date of Last Bowel Movement 03/13/18 Weight On Admission 79.379 kg Narrative: Left lateral foot at 5th metatarsal head area with fibrotic wound and mild peripheral erythema. No visible/palpable bone noted. Painful to palpation. Bleeding to peripheral edges. Sensation intact. Assessment and Plan - Assessment (1) Chronic ulcer of left foot with fat layer exposed Code(s): L97.522 - Non-pressure chronic ulcer of other part of left foot with fat layer exposed Status: Acute (2) Pain in left foot Code(s): M79.672 - Pain in left foot Status: Acute (3) Exostosis of left foot Code(s): M89.8X7 - Other specified disorders of bone, ankle and foot Status: Acute - Plan Continue with CTA and possible intervention If optimized, will plan to excise wound and debride further bone and primary closure either tomorrow p.m. or Saturday, pending vascular evaluation.
--- NOTE | 2018-03-13 20:09 | XR ---
EXAM DATE: 03/13/2018 8:03 PM EST AGE/SEX: 77 years / Male INDICATIONS: Pre surgery, vascular surgery left leg CLINICAL DATA: This is the patient's subsequent encounter. Patient reports that signs and symptoms h ave been present for 2 days and indicates a pain score of 0/10. MEDICAL/SURGICAL HISTORY: . Hypercholesterolemia. Hypertension Coronary artery disease. Caroti d stent. COMPARISON: PO, CHEST SINGLE AP, 03/16/2017. . FINDINGS: A single AP view of the chest demonstrates the lungs to be symmetrically aerated without evidence of mass, infiltrate or effusion. The cardiomediastinal contours are unremarkable. Posttraumatic osteol ysis involving the distal left clavicle. Osseous structures are intact. CONCLUSION: No acute cardiopulmonary disease. Electronically signed by: James Kilgore MD Board Certified Radiologist 03/13/2018 8:08 PM EST
[2018-03-13] MEDS: Ciprofloxacin 500 MG Tablet PO SCH (21:23)
[2018-03-13] MEDS: Senna/Docusate Sodium 8.6/50 MG Tablet PO SCH (21:23)
[2018-03-14 06:06] LABS: Baso # (Auto) 0.1 th/mm3 (0.0-0.2); Baso % (Auto) 1.4 % (0.0-2.0); Eos # (Auto) 0.2 th/mm3 (0.0-0.4); Eos % (Auto) 3.6 % (0.0-4.0); Hemoglobin 12.8 gm/dL (13.0-17.0); Lymph # (Auto) 1.6 th/mm3 (1.0-4.8); Lymph % (Auto) 27.9 % (9.0-44.0); Mean Corpuscular HGB Conc 34.7 % (32.0-36.0); Mean Corpuscular Hemoglobin 34.7 pg (27.0-34.0); Mean Corpuscular Volume 99.9 fL (80.0-100.0); Mean Platelet Volume 8.9 fL (7.0-11.0); Mono # (Auto) 0.6 th/mm3 (0.0-0.9); Mono % (Auto) 9.5 % (0.0-8.0); Neut # (Auto) 3.4 th/mm3 (1.8-7.7); Neut % (Auto) 57.6 % (16.0-70.0); Platelet Count 128 th/mm3 (150-450); Red Cell Distribution Width 13.8 % (11.6-17.2); White Blood Count 5.8 th/mm3 (4.0-11.0)
[2018-03-14] MEDS: Sod Chloride 0.9% Inj 1,000 ML IV.CONT SCH ×3 (06:16→21:34)
[2018-03-14 06:22] LABS: Calcium 8.7 mg/dL (8.5-10.1); Carbon Dioxide 25.8 meq/L (21.0-32.0)
--- NOTE | 2018-03-14 08:25 | ECHRPT ---
Indication: PRE OP CONCLUSIONS Normal left ventricular size and wall thickness. The left ventricular systolic function is normal wi th an estimated ejection fraction in the range of 60-65%. Left ventricular diastolic function parameters a re normal. There is trace tricuspid valve regurgitation. The estimated pulmonary arterial pressure is 27.6 mmHg. BP: / HR: Rhythm: Sinus MEASUREMENTS (Male / Female) Normal Values Technical Quality:Good 2D ECHO LV Diastolic Diameter PLAX 4.6 cm 4.2 - 5.9 / 3.9 - 5.3 cm LV Systolic Diameter PLAX 3.4 cm IVS Diastolic Thickness 1.1 cm 0.6 - 1.0 / 0.6 - 0.9 cm LVPW Diastolic Thickness 1.1 cm 0.6 - 1.0 / 0.6 - 0.9 cm LV Relative Wall Thickness 0.5 LVOT Diameter 1.9 cm Ascending Aorta Diameter 3.3 cm M-MODE Aortic Root Diameter MM 2.9 cm LA Systolic Diameter MM 3.8 cm LA Ao Ratio MM 1.3 AV Cusp Separation MM 1.7 cm DOPPLER AV Peak Velocity 189.0 cm/s AV Peak Gradient 14.3 mmHg LVOT Peak Velocity 103.0 cm/s LVOT Peak Gradient 4.2 mmHg AV Area Cont Eq pk 1.5 cm MR Peak Velocity 356.5 cm/s MR Peak Gradient 50.8 mmHg Mitral E Point Velocity 104.0 cm/s Mitral A Point Velocity 111.0 cm/s Mitral E to A Ratio 0.9 LV E' Lateral Velocity 6.3 cm/s Mitral E to LV E' Lateral Ratio 16.4 LV E' Septal Velocity 6.9 cm/s Mitral E to LV E' Septal Ratio 15.0 TR Peak Velocity 209.7 cm/s TR Peak Gradient 17.6 mmHg Right Atrial Pressure 10.0 mmHg Pulmonary Artery Systolic Pressu 27.6 mmHg Right Ventricular Systolic Press 27.6 mmHg PV Peak Velocity 167.0 cm/s PV Peak Gradient 11.2 mmHg FINDINGS LEFT VENTRICLE Normal left ventricular size and wall thickness. The left ventricular systolic function is normal wi th an estimated ejection fraction in the range of 60-65%. Left ventricular diastolic function parameters a re normal. RIGHT VENTRICLE Normal right ventricular size and systolic function. LEFT ATRIUM The left atrial size is normal. RIGHT ATRIUM The right atrial size is normal. ATRIAL SEPTUM Normal atrial septal thickness without atrial level shunting by limited color doppler interrogation. AORTA The aortic root and proximal ascending aorta are normal in size on limited imaging. MITRAL VALVE Structurally normal mitral valve. No mitral valve stenosis or regurgitation. AORTIC VALVE Trileaflet aortic valve. No aortic valve stenosis or regurgitation. TRICUSPID VALVE There is trace tricuspid valve regurgitation. The estimated pulmonary arterial pressure is 27.6 mmHg. PULMONARY VALVE No pulmonary valve regurgitation or stenosis. VESSELS The inferior vena cava is normal in size. PERICARDIUM No pericardial effusion. Ariel Gordillo MD, FACC (Electronically Signed) Final Date:14 March 2018 08:24
[2018-03-14] MEDS: Senna/Docusate Sodium 8.6/50 MG Tablet PO SCH ×2 (09:37→21:30)
[2018-03-14] MEDS: Ciprofloxacin 500 MG Tablet PO SCH ×2 (09:37→21:30)
--- NOTE | 2018-03-14 10:13 | CT ---
EXAM DATE: 03/14/2018 10:00 AM EST AGE/SEX: 77 years / Male INDICATIONS: Left foot ulcer. CLINICAL DATA: This is the patient's initial encounter. Patient reports that signs and symptoms have been present for 1 week and indicates a pain score of 4/10. MEDICAL/SURGICAL HISTORY: Hypertension. Coronary artery stent. Fusion, lumbar. RADIATION DOSE: 2.66 CTDI (mGy) COMPARISON: No prior exams available for comparison. TECHNIQUE: Volumetric scanning was performed using a multi-row detector CT scanner during bolus infu noel of 97 ml Omnipaque 350 (iohexol) nonionic water-soluble contrast as a single exam dose. The d hayden was post processed with a variety of visualization algorithms including full volume maximum inten sity projection, multi-planar sliding thin slab reformation, curved planar reformation, and surface r endering techniques. Using automated exposure control and adjustment of the mA and/or kV according t o patient size, radiation dose was kept as low as reasonably achievable to obtain optimal diagnostic quality images. DICOM format image data is available electronically for review and comparison. FINDINGS: Abdominal aorta: There is mild stenosis at the ostia of the celiac. The SMA origins widely patent. Th ere are single renal arteries bilaterally. There is mild ostial renal stenosis on the right. The left renal is diseased but widely patent. The infrarenal aorta is heavily calcified but normal in caliber . The TIM is patent. Pelvic circulation: The common iliac and internal iliac circulation is diseased but adequate in calib er throughout. The external iliac circulation is widely patent bilaterally. Right leg: The common femoral and profunda femoral are widely patent. The superficial femoral demonst rates fairly diffuse atherosclerotic plaquing throughout its course with scattered areas of mild sten osis in its proximal segment and moderate stenosis at the level of the adductor hiatus. The popliteal is diseased but adequate in caliber. Distally, the examination demonstrates advanced small vessel di sease with diseased two-vessel runoff into the foot via the posterior tibial and the peroneal. Left leg: The left common femoral and profunda femoral are widely patent. There is diffuse atheroscle rotic plaquing throughout the course of the superficial femoral with scattered areas of mild stenosis proximally. There is moderate, borderline hemodynamically significant stenosis at the adductor hiatu s. The popliteal is adequate above and below the knee. Distally, there is advanced small vessel disea se below the level the knee. The anterior tibial is heavily diseased with areas of segmental occlusio n throughout its course. The posterior tibial again is heavily diseased but patent throughout its cou rse. The peroneal demonstrates areas of segmental occlusion in its distal segment. CT source data: There are interstitial fibrotic changes within the lung bases. The solid organs of th e abdomen are grossly intact. There is no retroperitoneal adenopathy. No free air free fluid is seen. There are postsurgical changes within the spine. CONCLUSION: 1. There is diseased but adequate in flow down to the level the groin bilaterally. 2. Right leg: Patchy disease throughout the superficial femoral however, the dominant abnormality is advanced small vessel disease below the level the knee. This is described in detail above. 3. Left leg: Patchy disease within the superficial femoral with advanced small vessel disease below the level the knee. This is described in detail above. Electronically signed by: Sanjeev Ferris MD Board Certified Radiologist 03/14/2018 10:12 AM EST
--- NOTE | 2018-03-14 13:46 | ECG ---
Date Performed: 03/13/2018 Time Performed: 15:41:30 PTAGE: 77 years EKG: Sinus rhythm RIGHT BUNDLE BRANCH BLOCK LEFT ANTERIOR FASCICULAR BLOCK POSSIBLE SEPTAL MYOCARDIAL INFARCTION , PRO BABLY OLD ABNORMAL ECG Since the PREVIOUS TRACING , no significant change noted PREVIOUS TRACIN03/16/2017 16.55 DOCTOR: Lucas Abraham Interpretating Date/Time 03/14/2018 13:34:20
--- NOTE | 2018-03-14 17:44 | P.PNIM ---
Subjective Interval history: Follow-up visit hypertension and dyslipidemia Patient seen post operatively. He reports feeling slightly anxious about upcoming procedure. Risks, benefits, alternatives explained to patient in detail per Podiatry. He wishes to proceed with surgical intervention to his left lateral foot wound. Denies pain to foot. No other questions voiced at present time. Physical Exam Vital signs: Last Vital Signs Temp 98 F 03/14/18 12:00 Pulse 60 03/14/18 12:00 Resp 18 03/14/18 12:00 BP 132/65 03/14/18 12:00 Pulse Ox 97 03/14/18 12:00 Intake & Output 03/12/18 03/13/18 03/14/18 03/15/18 06:59 06:59 06:59 06:59 Intake Total 1560 / 1560 1000 / 1000 Output Total 1375 / 1375 Balance 185 / 185 1000 / 1000 Weight 79 kg Narrative: GENERAL: no acute distress SKIN: Warm and dry. HEAD: Normocephalic. EYES: No scleral icterus. No injection or drainage. NECK: Supple, trachea midline. No JVD or lymphadenopathy. CARDIOVASCULAR: Regular rate and rhythm without murmurs, gallops, or rubs. RESPIRATORY: Breath sounds equal bilaterally. No accessory muscle use. GASTROINTESTINAL: Abdomen soft, non-tender, nondistended. MUSCULOSKELETAL: No cyanosis or edema. Left lateral foot 5th metatarsal head fibrotic wound and mild peripheral erythema. Results Labs CBC & Chem 7: 03/14/18 05:35 03/14/18 05:35 Imaging Imaging: Impressions Chest X-Ray 03/13/18 00:00 CONCLUSION: No acute cardiopulmonary disease. Aorta w/Runoff CTA 03/14/18 15:19 CONCLUSION: 1. There is diseased but adequate in flow down to the level the groin bilaterally. 2. Right leg: Patchy disease throughout the superficial femoral however, the dominant abnormality is advanced small vessel disease below the level the knee. This is described in detail above. 3. Left leg: Patchy disease within the superficial femoral with advanced small vessel disease below the level the knee. This is described in detail above. Assessment and Plan (1) Chronic ulcer of left foot with fat layer exposed: Code(s): L97.522 - Non-pressure chronic ulcer of other part of left foot with fat layer exposed Status: Acute (2) Pain in left foot: Code(s): M79.672 - Pain in left foot Status: Acute (3) Exostosis of left foot: Code(s): M89.8X7 - Other specified disorders of bone, ankle and foot Status: Acute Plan Patient is a pleasant 77 year old male with a past medical history significant for coronary artery disease s/p cardiac stent placement, hypertension, dyslipidemia and GERD. He presents for evaluation by vascular surgery for a nonhealing wound to the lateral aspect of his left foot. Patient underwent surgical procedure 02/10/18 and developed a wound afterwards. Left lateral foot nonhealing wound -s/p minimally invasive surgery for ostectomy in Jan 2018 -primary management per Vascular surgery -CTA with runoff with L&R advanced small vessel disease below the knee -Podiatry consulted, plan is to excise wd and debride further bone and primary closure -continue Cipro and Clindamycin as previously ordered outpatient Hypertension, chronic -stable, normotensive -continue home meds metoprolol and Valsartan -monitor Dyslipidemia, chronic - stable -pt with recent lipid panel at [facility] -total Chol 190's, LDL 99 -statin currently on hold Hx of coronary artery disease s/p cardiac stent placement 2011 -last heart cath 6 months ago and unremarkable per patient report -f/u with International Trade Analyst yearly -continue ASA GERD, chronic - stable -on home Nexium MDM: self Code: Full GI ppx: not indicated DVT ppx: Lovenox SubQ Dispo: home once cleared by specialists Progress Note: Quality VTE Deep Vein Thrombosis/Pulmonary Embolism Present on Admission: No
--- NOTE | 2018-03-14 18:29 | P.PNVS ---
Subjective Subjective/Hospital Course: 03/14/2018 Patient with peripheral vascular disease and gangrenous changes of the foot I reviewed CTA with a runoff in this wound confirms my initial impression Patient has good inflow, patent common femoral and deep femoral arteries and then quite calcified but patent superficial femoral arteries bilateral. The real problem started below the level of trifurcation where patient has only 2 vessel runoff to each foot via the posterior tibial and peroneal arteries where the anterior tibial artery is occluded The trifurcation vessels are also heavily calcified but patent. Patient has significant small vessel disease below the level of the knee with some collateral flow. In summary this patient does not have any reconstructable vascular disease either open or endovascular means yet mainly small vessel disease with trifurcation atherosclerotic changes typical for diabetes mellitus Would definitely proceed with any planned podiatric surgery and this should heal adequately at this point Objective Vital Signs / I&O: Vital Signs 03/13/18 21:17 03/14/18 00:27 03/14/18 04:34 Temperature 98.2 F 98.4 F 97.7 F Pulse Rate 67 70 59 L Respiratory Rate 17 18 17 Blood Pressure 125/76 144/77 H 130/72 Pulse Oximetry 96 95 93 L 03/14/18 08:00 03/14/18 12:00 Temperature 98 F 98 F Pulse Rate 60 60 Respiratory Rate 18 18 Blood Pressure 132/65 132/65 Pulse Oximetry 97 97 Intake & Output 03/13/18 03/14/18 03/14/18 18:59 06:59 18:59 Intake Total 240 / 240 1320 / 1320 1000 / 1000 Output Total 500 / 500 875 / 875 Balance -260 / -260 445 / 445 1000 / 1000 Weight 79.379 kg 79 kg Intake: IV 960 / 960 1000 / 1000 NS Inj 1,000 ML @ 100 mls/hr IV 960 / 960 1000 / 1000 .CONT .Q10H [facility] Rx#:[id number] Oral 240 / 240 360 / 360 Output: Urine 500 / 500 875 / 875 Other: # Voids 3 Date of Last Bowel Movement 03/13/18 03/13/18 03/13/18 # Bowel Movements 0 Weight On Admission 79.379 kg Laboratory Results - last 24 hr 03/14/18 03/14/18 05:35 05:35 WBC 5.8 RBC 3.70 L Hgb 12.8 L Hct 37.0 L MCV 99.9 MCH 34.7 H MCHC 34.7 RDW 13.8 Plt Count 128 L MPV 8.9 Neut % (Auto) 57.6 Lymph % (Auto) 27.9 [place] % (Auto) 9.5 H Eos % (Auto) 3.6 Baso % (Auto) 1.4 Neut # (Auto) 3.4 Lymph # (Auto) 1.6 [place] # (Auto) 0.6 Eos # (Auto) 0.2 Baso # (Auto) 0.1 WBC Differential . Differential Comment Auto diff final Sodium 141 Potassium 4.0 Chloride 108 H Carbon Dioxide 25.8 Anion Gap 7 BUN 13 Creatinine 0.92 Estimated GFR 80 L Random Glucose 107 H Calcium 8.7 Impressions Chest X-Ray 03/13/18 00:00 CONCLUSION: No acute cardiopulmonary disease. Aorta w/Runoff CTA 03/14/18 15:19 CONCLUSION: 1. There is diseased but adequate in flow down to the level the groin bilaterally. 2. Right leg: Patchy disease throughout the superficial femoral however, the dominant abnormality is advanced small vessel disease below the level the knee. This is described in detail above. 3. Left leg: Patchy disease within the superficial femoral with advanced small vessel disease below the level the knee. This is described in detail above.
--- NOTE | 2018-03-14 18:32 | P.BOP ---
- Preoperative Diagnosis (1) Chronic ulcer of left foot with fat layer exposed (2) Pain in left foot (3) Exostosis of left foot - Postoperative Diagnosis (1) Chronic ulcer of left foot with fat layer exposed (2) Pain in left foot (3) Exostosis of left foot Date of procedure: 03/14/18 Procedure: 1. excision of wound left foot 2. debridement of bone with 5th metatarsal head resection left foot Left lateral foot wound excised and removal of 5th metatarsal head with excisional debridement of bone with saw, #15 blade, rongeur, and curette, down to level of healthy bleeding bone. Very adequate bloodflow noted intraoperatively. No purulence noted. Irrigation with normal saline and closure with 3-0 vicryl and 3-0 nylon. Dressing with xeroform, 4x4, abd, cast padding, stefano with no compression. No tourniquet utilized. DISPOSITION Nonweightbearing left lower extremity (has walker and knee scooter at home) [employer] consulted to apply short posterior splint over surgical bandage to patient prior to discharge to allow compliance with nonweightbearing. Follow up Saturday in clinic for dressing change Ok to discharge home tomorrow morning Anesthesia: GETA, local (10mL 0.25% marcaine plain) Surgeon: Peyman Mcclelland DPM Mail Delivery Supervisor: staff Estimated blood loss (mL): 10 Pathology: other (1. wound left lateral foot and bone left 5th metatarsal head) Condition: stable Disposition: PACU
[2018-03-14] MEDS ORDERED: Bupivacaine 0.25% Inj 50 ML MDV Vial ONE (18:57)
[2018-03-14] MEDS ORDERED: *morphine SULFATE 4 MG/ML PERIprocedure ONLY ONE (19:57)
[2018-03-14] MEDS ORDERED: fentaNYL Citrate Inj 100 MCG/2 ML Ampul ONE (20:03)
--- NOTE | 2018-03-14 20:29 | XR ---
EXAM DATE: 03/14/2018 8:16 PM EST AGE/SEX: 77 years / Male INDICATIONS: Post-operative for partial amputation, fifth digit. CLINICAL DATA: This is the patient's initial encounter. Patient reports that signs and symptoms have been present for 1 day and indicates a pain score of Nonresponsive. MEDICAL/SURGICAL HISTORY: Non-responsive. Non-responsive. COMPARISON: No prior exams available for comparison. FINDINGS: There is amputation of the distal fifth metatarsal and partial amputation of the proximal fifth toe. No other amputations. No acute fracture. CONCLUSION: Amputation of distal fifth metatarsal and proximal fifth toe. Electronically signed by: Nirmal Coronado MD Board Certified Radiologist 03/14/2018 8:28 PM EST
[2018-03-14] MEDS: Enoxaparin Inj 40 MG/0.4 ML Syringe SQ SCH (21:23)
[2018-03-15] MEDS: Sod Chloride 0.9% Inj 1,000 ML IV.CONT SCH (09:13)
[2018-03-15] MEDS: Ciprofloxacin 500 MG Tablet PO SCH (09:14)
[2018-03-15] MEDS: Senna/Docusate Sodium 8.6/50 MG Tablet PO SCH (09:14)
--- NOTE | 2018-03-15 09:18 | P.DS ---
DS: Providers Date of admission: 03/13/18 09:50 Primary care physician: Peyman Mcclelland DPM Consults: 03/13/18 15:19 Consult to Hospitalist Routine Consulting Provider: Kailee Moore Reason for Consultation: medical management Notified:: Service Spoke with:: neri Date Notified:: 03/13/18 Time Notified:: 15:36 Comments:: waiting orthodontic treatment coordinator back/ra Ordering Provider: BHANU 03/13/18 15:21 Consult to Podiatry Routine Consulting Provider: Peyman Mcclelland Preferred Wave Guide Assembler:: Peyman Mcclelland Reason for Consultation: l foot ulcer Notified:: Office Spoke with:: bora Date Notified:: 03/13/18 Time Notified:: 15:32 Ordering Provider: BHANU DS: Diagnosis Discharge Diagnosis (1) Chronic ulcer of left foot with fat layer exposed: Status: Acute (2) Pain in left foot: Status: Acute (3) Exostosis of left foot: Status: Acute DS: Summary Patient is a pleasant 77 year old male with a past medical history significant for coronary artery disease s/p cardiac stent placement, hypertension, dyslipidemia and GERD. He presents for evaluation by vascular surgery for a nonhealing wound to the lateral aspect of his left foot. Patient underwent surgical procedure 02/10/18 and developed a wound afterwards. Podiatry consulted, s.p excise wd and debrided further bone and primary closure . Imprpved. NWB at [facility] to follow up as OP on 03/18 with podiatry in office for wound care Left lateral foot nonhealing wound -s/p minimally invasive surgery for ostectomy in Jan 2018 -primary management per Vascular surgery -CTA with runoff with L&R advanced small vessel disease below the knee -Podiatry consulted, s.p excise wd and debrided further bone and primary closure -continue Cipro and Clindamycin as previously ordered outpatient Hypertension, chronic -stable, normotensive -continue home meds metoprolol and Valsartan -monitor Dyslipidemia, chronic - stable -pt with recent lipid panel at [facility] -total Chol 190's, LDL 99 -statin currently on hold Hx of coronary artery disease s/p cardiac stent placement 2011 -last heart cath 6 months ago and unremarkable per patient report -f/u with Eligibility And Occupancy Interviewer yearly -continue ASA GERD, chronic - stable -on home Nexium MDM: self Code: Full GI ppx: not indicated DVT ppx: Lovenox SubQ DC home in stable condition to follow up as OP with PCP and consultants Nonweightbearing left lower extremity (has walker and knee scooter at home) [employer] consulted to apply short posterior splint over surgical bandage to patient prior to discharge to allow compliance with nonweightbearing. Follow up Saturday with podiatry in clinic for dressing change Time Spent with Patient Total time spent providing and/or coordinating discharge services: >30 min Quality: VTE Deep Vein Thrombosis/Pulmonary Embolism Present on Admission: No Exam Narrative Exam Narrative: GENERAL: no acute distress. CARDIOVASCULAR: Regular rate and rhythm without murmurs, gallops, or rubs. RESPIRATORY: Breath sounds equal bilaterally. No accessory muscle use. GASTROINTESTINAL: Abdomen soft, non-tender, nondistended. MUSCULOSKELETAL: No cyanosis or edema. Left lateral foot 5th metatarsal head fibrotic wound and mild peripheral erythema. Results Pending studies at discharge: Pending at discharge 03/14/18 Surgical [PTH] Routine Impressions ITS Impressions Chest X-Ray 03/13/18 00:00 CONCLUSION: No acute cardiopulmonary disease. Foot X-Ray 03/14/18 00:00 CONCLUSION: Amputation of distal fifth metatarsal and proximal fifth toe. Aorta w/Runoff CTA 03/14/18 15:19 CONCLUSION: 1. There is diseased but adequate in flow down to the level the groin bilaterally. 2. Right leg: Patchy disease throughout the superficial femoral however, the dominant abnormality is advanced small vessel disease below the level the knee. This is described in detail above. 3. Left leg: Patchy disease within the superficial femoral with advanced small vessel disease below the level the knee. This is described in detail above. Discharge Plan Discharge Disposition Patient Disposition: Discharge Home Discharge Condition Condition: Stable Discharge Order Discharge Orders: Discharge Order (Routine); Ordered 03/15/18 Ordered By: Kailee Moore Discharge Details Anticipated Discharge Date: 03/15/18 Discharge Comment: DC when arrangements are done and cleared by podiatry Physicians Team Primary Care Provider: Peyman Mcclelland Attending Provider: Luma Banks Other Providers: Peyman Mcclelland ; Kailee Moore Rxs /Orders / Referrals /Forms Prescriptions: Continue valsartan [Diovan] 80 mg Tablet 80 mg PO DAILY RF: 0 aspirin 81 mg Tablet,Chewable 81 mg PO HS RF: 0 metoprolol succinate 25 mg Tablet Extended Release 24 Hr 25 mg PO HS RF: 0 esomeprazole magnesium [Nexium] 20 mg Capsule,Delayed Release(Dr/Ec) 20 mg PO BID RF: 0 cholecalciferol (vitamin D3) [Vitamin D3] 1,000 unit Capsule 1,000 unit PO HS RF: 0 multivitamin,tx-minerals [Multi-Vitamin HP/Minerals] Capsule RF: 0 rosuvastatin [Crestor] 20 mg Tablet See Label Instructions .ROUTE .COMPLEX RF: 0 rosuvastatin [Crestor] 40 mg Tablet See Label Instructions .ROUTE .COMPLEX RF: 0 cyanocobalamin-cobamamide [B12] 5,000-100 mcg Lozenge 500 mcg Sublingual DAILY RF: 0 potassium 595 mg PO EVERY OTHER DAY RF: 0 Referrals: Peyman Mcclelland DPM [Primary Care Provider] - See Instructions ( Please call the physician's office to book the appointment to be seen within [1 week].) Jose Pavon DO [Family Provider] - See Instructions ( Please call the physician's office to book the appointment to be seen within [2-3 days].) Discharge Instructions Patient Printed Instructions: Peripheral Vascular Disease (GEN) Additional Instructions: Follow up as instructed with your providers. Take medications as instructed. Post Discharge Care Plan Care Plan Goals: Your Health Problems: Goals to Promote Your Health: * To prevent worsening of your condition * To maintain your health at the optimal level Directions to Meet Your Goals: * Take your medications as prescribed * Follow your dietary instruction * Follow activity as directed * Keep your appointments as scheduled * Take your immunizations and boosters as scheduled * If your symptoms worsen call your PCP * If no PCP go to Urgent Care or Emergency Room Smoking is dangerous to your health. Avoid second hand smoke. You may reach the 24-hour crisis hotline for domestic abuse at .
[2018-03-15 10:20] VITALS: RESP 14; O2SAT 94
--- NOTE | 2018-03-15 13:54 | P.DCO ---
Diagnosis (1) Chronic ulcer of left foot with fat layer exposed: Status: Acute (2) Pain in left foot: Status: Acute (3) Exostosis of left foot: Status: Acute Physical Therapy Order: Evaluate and treat Home Health Nursing Order: Medical education, Signs/symptoms of disease process, Medication education-adverse effect and Nursing assessment with vital signs Case Management Consult Case Management Consult-Home Health: Yes I have seen patient Bro Sims on 03/15/18. My clinical findings support the need for the requested home health care services because: Limited mobility due to disease progression I certify that my clinical findings support that this patient is homebound because: Post-op weakness and Unsteady gait/balance
--- NOTE | 2018-03-15 14:19 | P.PNIM ---
Subjective Interval history: In nad. No pain at the surgical site.No fever or chills.NO n/v /d/c. Physical Exam Vital signs: Last Vital Signs Temp 98.2 F 03/15/18 08:00 Pulse 69 03/15/18 08:00 Resp 14 03/15/18 08:00 BP 123/58 L 03/15/18 08:00 Pulse Ox 94 L 03/15/18 08:00 Intake & Output 03/13/18 03/14/18 03/15/18 03/16/18 06:59 06:59 06:59 06:59 Intake Total 1560 / 1560 3381 / 3381 Output Total 1375 / 1375 560 / 560 Balance 185 / 185 2821 / 2821 Weight 79 kg 91.8 kg Narrative: GENERAL: Niclo 77 yo male, inno acute distress CARDIOVASCULAR: Regular rate and rhythm without murmurs, gallops, or rubs. RESPIRATORY: Breath sounds equal bilaterally. No accessory muscle use. GASTROINTESTINAL: Abdomen soft, non-tender, nondistended. MUSCULOSKELETAL: No cyanosis or edema. Left lateral foot wrapped splint n place Results Labs CBC & Chem 7: 03/14/18 05:35 03/14/18 05:35 Imaging Imaging: Impressions Foot X-Ray 03/14/18 00:00 CONCLUSION: Amputation of distal fifth metatarsal and proximal fifth toe. Assessment and Plan (1) Chronic ulcer of left foot with fat layer exposed: Code(s): L97.522 - Non-pressure chronic ulcer of other part of left foot with fat layer exposed Status: Acute (2) Pain in left foot: Code(s): M79.672 - Pain in left foot Status: Acute (3) Exostosis of left foot: Code(s): M89.8X7 - Other specified disorders of bone, ankle and foot Status: Acute Plan Patient is a pleasant 77 year old male with a past medical history significant for coronary artery disease s/p cardiac stent placement, hypertension, dyslipidemia and GERD. He presents for evaluation by vascular surgery for a nonhealing wound to the lateral aspect of his left foot. Patient underwent surgical procedure 02/10/18 and developed a wound afterwards. Podiatry consulted, s.p excise wd and debrided further bone and primary closure . Imprpved. NWB at [facility] to follow up as OP on 03/18 with podiatry in office for wound care Left lateral foot nonhealing wound -s/p minimally invasive surgery for ostectomy in Jan 2018 -primary management per Vascular surgery -CTA with runoff with L&R advanced small vessel disease below the knee -Podiatry consulted, s.p excise wd and debrided further bone and primary closure -continue Cipro and Clindamycin as previously ordered outpatient Hypertension, chronic -stable, normotensive -continue home meds metoprolol and Valsartan -monitor Dyslipidemia, chronic - stable -pt with recent lipid panel at [facility] -total Chol 190's, LDL 99 -statin currently on hold Hx of coronary artery disease s/p cardiac stent placement 2011 -last heart cath 6 months ago and unremarkable per patient report -f/u with Surgical Assistant Certified yearly -continue ASA GERD, chronic - stable -on home Nexium MDM: self Code: Full GI ppx: not indicated DVT ppx: Lovenox SubQ DC home in stable condition to follow up as OP with PCP and consultants. Nonweightbearing left lower extremity (has walker and knee scooter at home) [employer] consulted to apply short posterior splint over surgical bandage to patient prior to discharge to allow compliance with nonweightbearing. Follow up Saturday with podiatry in clinic for dressing change Progress Note: Quality VTE Deep Vein Thrombosis/Pulmonary Embolism Present on Admission: No
[2018-03-15 14:36] VITALS: BP 132/62; PULSE 70; TEMP 97.4
--- NOTE | 2018-03-15 14:41 | P.PNVS ---
Subjective Subjective/Hospital Course: 03/14/2018 Patient with peripheral vascular disease and gangrenous changes of the foot I reviewed CTA with a runoff in this wound confirms my initial impression Patient has good inflow, patent common femoral and deep femoral arteries and then quite calcified but patent superficial femoral arteries bilateral. The real problem started below the level of trifurcation where patient has only 2 vessel runoff to each foot via the posterior tibial and peroneal arteries where the anterior tibial artery is occluded The trifurcation vessels are also heavily calcified but patent. Patient has significant small vessel disease below the level of the knee with some collateral flow. In summary this patient does not have any reconstructable vascular disease either open or endovascular means yet mainly small vessel disease with trifurcation atherosclerotic changes typical for diabetes mellitus Would definitely proceed with any planned podiatric surgery and this should heal adequately at this point 03/15/2018 Patient underwent debridement by podiatry No reconstructable lesions as far as vascular surgery is concerned Patient to be discharged today with follow-up with podiatry Objective Vital Signs / I&O: Vital Signs 03/14/18 19:45 03/14/18 20:00 03/14/18 20:15 Temperature 97.8 F 98 F Pulse Rate 63 64 63 Respiratory Rate 15 18 15 Blood Pressure 168/74 H 152/69 H 148/75 H Pulse Oximetry 100 96 96 03/14/18 20:28 03/14/18 23:43 03/15/18 04:00 Temperature 97.3 F L 97.2 F L 97.7 F Pulse Rate 65 66 64 Respiratory Rate 16 17 16 Blood Pressure 154/69 H 158/68 H 131/66 Pulse Oximetry 97 95 95 03/15/18 08:00 03/15/18 12:00 Temperature 98.2 F 97.4 F L Pulse Rate 69 70 Respiratory Rate 14 14 Blood Pressure 123/58 L 132/62 Pulse Oximetry 94 L 94 L Intake & Output 03/14/18 03/15/18 03/15/18 18:59 06:59 18:59 Intake Total 1000 / 1000 2381 / 2381 Output Total 560 / 560 Balance 1000 / 1000 1821 / 1821 Weight 91.8 kg Intake: IV 1000 / 1000 1281 / 1281 NS Inj 1,000 ML @ 100 mls/hr IV 1000 / 1000 1281 / 1281 .CONT .Q10H [facility] Rx#:[id number] Oral 300 / 300 Anesthesia Amount 800 / 800 Output: Urine 550 / 550 Estimated Blood Loss Other: # Voids 4 Date of Last Bowel Movement 03/13/18 03/14/18 03/14/18 # Incontinent Bowel Movements 0 Impressions Chest X-Ray 03/13/18 00:00 CONCLUSION: No acute cardiopulmonary disease. Foot X-Ray 03/14/18 00:00 CONCLUSION: Amputation of distal fifth metatarsal and proximal fifth toe. Aorta w/Runoff CTA 03/14/18 15:19 CONCLUSION: 1. There is diseased but adequate in flow down to the level the groin bilaterally. 2. Right leg: Patchy disease throughout the superficial femoral however, the dominant abnormality is advanced small vessel disease below the level the knee. This is described in detail above. 3. Left leg: Patchy disease within the superficial femoral with advanced small vessel disease below the level the knee. This is described in detail above.
[2018-03-15] MEDS: Enoxaparin Inj 40 MG/0.4 ML Syringe SQ SCH (16:07)
--- NOTE | 2018-03-24 14:26 | MP ---
cc: StasClaudiaspencer DE LA TORRE DATE OF OPERATION: 03/14/2018 INDICATIONS: This patient presented to my clinic with painful exostosis to the plantar aspect of the foot. He underwent ostectomy. It did not appear to be enough to reduce his pain. His pain did not get better and it was found to have some mild fibrotic tissue noted at the lateral incision area. He had undergone a minimally invasive approach, but still continued to have pain and nonhealing at the incision site. I discussed with the patient that since he was continuing to have this pain, we ordered repeat vascular studies that came back showing adequate flow per vascular surgeon and no reconstruction was recommended at this time. I discussed with the patient in order to reduce his pain and remove the residual wound that was forming, I did not feel that he had adequate circulation to heal a wound like that, but may be able to heal a repeat surgical wound since he continued to have significant bleeding upon deep debridement of the wound, and I felt like he had enough there to get it to heal and encouraged him to consider moving forward with a fifth metatarsal head resection to remove the bone that is causing him the most trouble completely instead of just partially through the ostectomy. He agreed to move forward with surgery. DESCRIPTION OF PROCEDURE: He was seen in preop holding by myself, nursing staff, and Anesthesia, where the correct patient, side, and site were all confirmed to be correct in the left foot. He was then taken to the surgical suite in supine position. The left foot was prepped and draped in normal sterile fashion. Following timeout per facility protocol, attention was directed to the left foot. The left lateral foot wound was excised and the fifth metatarsal head was removed using excisional debridement of bone with a saw, a #15 blade, a rongeur and a curette down to the level of healthy bleeding bone. There was noted to be very adequate blood flow intraoperatively throughout the area in all tissues. The area was copiously irrigated, followed by closure with 3-0 Vicryl and 3-0 nylon. A dressing consisting of Xeroform, 4 x 4's, ABD, cast padding and Vito with no compression was utilized. No tourniquet was utilized. The patient tolerated the procedure and anesthesia well without complications, taken back to PACU with vital signs stable and vascular status intact to the remainder of the left foot. He will be nonweightbearing in a short posterior splint and follow up in clinic in 1 week for a dressing change. SHORT OPERATIVE NOTE SURGEON: Peyman Mcclelland DPM DISPOSAL MAN: Staff. PREOPERATIVE DIAGNOSES: 1. Chronic ulcer, left foot. 2. Pain, left foot. 3. Exostosis, left foot. POSTOPERATIVE DIAGNOSES: 1. Chronic ulcer, left foot. 2. Pain, left foot. 3. Exostosis, left foot. PROCEDURE: Excision of wound, left foot, and debridement of bone, left foot, with fifth metatarsal head resection, left foot. PATHOLOGY: Wound to left lateral foot and bone, left fifth metatarsal head. ESTIMATED BLOOD LOSS: 10 mL. COMPLICATIONS: None. CONDITION: Stable to PACU. HEMOSTASIS: No tourniquet utilized. ANESTHESIA: General endotracheal anesthesia plus local consisting of 10 mL of 0.25% Marcaine plain. DISPOSITION: Nonweightbearing to left lower extremity in short posterior splint. Follow up in clinic in 1 week for a dressing change. WIL Jacob/yonathan , 12:59 PM , 01:07 PM
== END 2018-03-15 16:36 | disposition home health service (06) | DRG 572 ==
LOC: N06 09:50
PROVIDERS: ADMIT Surgery; ATTEND Surgery
DX: Z95.5 Presence of coronary angioplasty implant and graft; M89.9 Disorder of bone, unspecified; I10 Essential (primary) hypertension; L97.522 Non-pressure chronic ulcer of other part of left foot with fat layer exposed; I25.2 Old myocardial infarction; I25.10 Atherosclerotic heart disease of native coronary artery without angina pectoris; I73.9 Peripheral vascular disease, unspecified; Z87.891 Personal history of nicotine dependence; E78.5 Hyperlipidemia, unspecified; K21.9 Gastro-esophageal reflux disease without esophagitis
CPT/HCPCS: 71010; 71045; 73630; 75635; 80048; 85025; 88304; 88305; 88311; 93005; 93306; 97110; 97116; 97162; 97164; J1650; J2270; J3010; J7030; Q9967